=== PATIENT | male | born 1970 | race African-American/Black ===

== ENCOUNTER 2017-12-23 17:20 | Emergency (ER) | payer SELFPAY ==
[~2017-12-23] VITALS: Ht 198.1 cm; Wt 144.0 kg
[2017-12-23 18:27] VITALS: BP 175/112
== END 2017-12-23 18:50 | disposition home or self-care (01) ==
LOC: ER 17:29
DX: G51.0 Bell's palsy (principal); I10 Essential (primary) hypertension; F12.10 Cannabis abuse, uncomplicated
CPT/HCPCS: 99283; Z7610

== ENCOUNTER 2019-02-23 04:55 | Emergency (ER) | payer SELFPAY ==
[~2019-02-23] VITALS: Ht 198.1 cm; Wt 147.3 kg
[2019-02-23 06:47] LABS: CLARITY URINE CLEAR (CLEAR); COLOR URINE YELLOW (YELLOW); KETONES URINE NEGATIVE (NEGATIVE); LEUKOCYTE ESTERASE URINE TRACE (NEGATIVE); NITRITE URINE NEGATIVE (NEGATIVE); OCCULT BLOOD URINE TRACE (NEGATIVE); PH URINE 5.5 (4.5-8.0); PROTEIN URINE TRACE (NEGATIVE); SPECIFIC GRAVITY URINE 1.022 (1.005-1.030); UROBILINOGEN URINE 0.2 E.U./dL (0.2-1.0)
[2019-02-23 08:20] VITALS: BP 217/143
== END 2019-02-23 08:22 | disposition home or self-care (01) ==
LOC: ER 04:55
DX: R32 Unspecified urinary incontinence (principal); I10 Essential (primary) hypertension; R06.00 Dyspnea, unspecified; F12.10 Cannabis abuse, uncomplicated; Z90.49 Acquired absence of other specified parts of digestive tract
CPT/HCPCS: 81003; 99283